=== PATIENT | female | born 1940 | race Caucasian/White ===

== ENCOUNTER → 2018-03-01 | Outpatient (CLI) | payer MEDICARE, OTHER ==
[~2018-03-01] MED LIST: AMBIENCR; NAPROSYN500 MG PO; PREMARIN0.3 MG PO
--- NOTE | 2018-03-01 15:16 | 2DMMODE ---
[place] [address] 2 D/M-MODE ECHOCARDIOGRAM Name: GENTRY RICHARDSON [id number] Admission: 03/01/18 Attend Phys: Jose Santamaria Discharge: Date of : 38 Date of Service: 03/01/18 1516 Report #: [id number] THIS REPORT FOR: //name// APPROVED REPORT Study performed: 03/01/2018 12:48:47 EXAM: Comprehensive 2D, Doppler, and color-flow Echocardiogram/ Bubble Study Patient Location: Out-Patient Status: routine BSA: 1.63 HR: 78 bpm BP: 120/70 mmHg Other Information Study Quality: Good Indications CVA/TIA Echo Enhancing Agent Indication: Rule out Shunt Agent(s) / Amount(s) Used: Agitated Saline 10 cc 2D Dimensions IVSd: 9.42 (7-11mm) LVOT Diam: 18.18 (18-24mm) LVDd: 35.05 mm PWd: 8.78 (7-11mm) Ascending Ao: 26.97 (22-36mm) LVDs: 18.80 (25-40mm) Aortic Root: 25.03 mm Volumes Left Atrial Volume (Systole) LA ESV Index: 15.40 mL/m2 Aortic Valve AoV Peak Shine.: 1.28 m/s AO Peak Gr.: 6.59 mmHg LVOT Max P.82 mmHg AO Mean Gr.: 4.10 mmHg LVOT Mean P.38 mmHg LVOT Max V: 0.84 m/s AO V2 VTI: 30.92 cm LVOT Mean V: 0.54 m/s HANH (VTI): 1.72 cm2 LVOT V1 VTI: 20.44 [place] [address] 2 D/M-MODE ECHOCARDIOGRAM Name: GENTRY RICHARDSON Room: [facility]#: [id number] Admission: 03/01/18 Attend Phys: Jose Santamaria Discharge: Date of : 38 Date of Service: 03/01/18 1516 Report #: [id number] E/A Ratio: 0.75 MV Decel. Time: 190.62 ms MV E Max Shine.: 0.65 m/s MV PHT: 55.28 ms MVA (PHT): 3.98 cm2 TDI E/Lateral E': 6.50 E/Medial E': 7.22 Medial E' Shine.: 0.09 m/s Lateral E' Shine.: 0.10 m/s Pulmonary Valve PV Peak Shine.: 0.89 m/s PV Peak Gr.: 3.16 mmHg Tricuspid Valve RAP Estimate: 5.00 mmHg TR Peak Gr.: 14.79 mmHg RVSP: 19.79 mmHg PA Pressure: 19.79 mmHg Left Ventricle The left ventricle is normal size. There is normal LV segmental wall motion. There is normal left ventricular wall thickness. Left ventricular systolic function is normal. The left ventricular ejection fraction is within the normal range. LVEF is 55-60%. Grade I - abnormal relaxation pattern. Right Ventricle The right ventricle is normal size. The right ventricular systolic function is normal. Atria The left atrium size is normal. Injection of bubbles documented no interatrial shunt. The right atrium size is normal. Aortic Valve The aortic valve is normal in structure. Trace aortic regurgitation. There is no aortic valvular stenosis. Mitral Valve The mitral valve is normal in structure. Trace mitral regurgitation. No evidence of mitral valve stenosis. Tricuspid Valve The tricuspid valve is normal in structure. [place] [address] 2 D/M-MODE ECHOCARDIOGRAM Name: MARIA ISABEL POPEGENTRY RENO Room: [facility]#: [id number] Admission: 03/01/18 Attend Phys: Jose Santamaria Discharge: Date of : 38 Date of Service: 03/01/18 1516 Report #: [id number] Pulmonic Valve The pulmonary valve is normal in structure. Trace pulmonic regurgitation. Great Vessels The aortic root is normal in size. IVC is normal in size and collapses >50% with inspiration. Pericardium There is no pericardial effusion. <Conclusion> LVEF is 55-60%. Injection of bubbles documented no interatrial shunt. <ELECTRONICALLY SIGNED> By: Jacob Decker MD, FACC 03/01/18 1516 [id number] Jacob Decker MD, FACC /INF
== END ==
LOC: M.CRD 02-16 15:11
DX: I07.1 Rheumatic tricuspid insufficiency (principal); G45.9 Transient cerebral ischemic attack, unspecified; I63.9 Cerebral infarction, unspecified

== ENCOUNTER → 2020-11-22 | Outpatient (CLI) | payer MEDICARE, OTHER | LOC: M.MRI 11-12 15:58 | PROVIDERS: ATTEND Family Medicine | DX: M81.0 Age-related osteoporosis without current pathological fracture (principal); I63.9 Cerebral infarction, unspecified; G45.9 Transient cerebral ischemic attack, unspecified; R41.82 Altered mental status, unspecified; H53.9 Unspecified visual disturbance; R41.3 Other amnesia; Z78.0 Asymptomatic menopausal state ==

== ENCOUNTER → 2020-11-22 | Outpatient (CLI) | payer OTHER | LOC: M.CT 08:34 | PROVIDERS: ATTEND Family Medicine | DX: Z13.6 Encounter for screening for cardiovascular disorders (principal) ==